=== PATIENT | female | born 1940 | race Caucasian/White ===

== ENCOUNTER → 2016-11-27 | Outpatient (CLI) | payer MEDICARE ==
[2016-08-22 14:34] VITALS: BP 121/60
[~2016-11-27] MED LIST: ALPR0.5T PO; AMIT25TA PO; AMLO10TA4 PO; ASCO500C PO; CALCIUM; CELE200C PO; ESCI10TA PO; GABA-585 PO; GLIP10TA13 PO; HYDR-971 PO; IRBE1TAB PO; LIPITOR80 MG PO; OMEP20TA PO; PROP10DR3 EACHEYE; ROPI0.5T2 PO; SULF1TAB24 PO; TRAM50TA PO; VIT D; VIT1TABL32 PO; mutivitamin
[2016-11-27 09:52] LABS: BASO # 0.1 x10^3/uL (0.0-0.2); BASO % 1 % (0-3); EOS % 1 % (0-3); HEMATOCRIT 41.2 % (36.0-47.0); HEMOGLOBIN 14.1 g/dL (12.0-15.5); LYMPH # 3.4 x10^3/uL (1.0-4.8); LYMPH % 37 % (24-48); MEAN CORPUSCULAR HEMOGLOBIN 32 pg (25-35); MEAN CORPUSCULAR HGB CONC 34 g/dL (31-37); MEAN CORPUSCULAR VOLUME 94 fL (79-100); MONO % 19 % (0-9); NEUT % 41 % (31-73); PLATELET COUNT 261 x10^3/uL (140-400); RED BLOOD COUNT 4.39 x10^6/uL (3.50-5.40)
[2016-11-27 10:10] LABS: ALBUMIN 3.6 g/dL (3.4-5.0); ALBUMIN/GLOBULIN RATIO 0.9 (1.0-1.7); CALCIUM 8.9 mg/dL (8.5-10.1); CREATININE 1.1 mg/dL (0.6-1.0); GFR 48.2; TOTAL BILIRUBIN 0.3 mg/dL (0.2-1.0); TOTAL PROTEIN 7.5 g/dL (6.4-8.2)
[2016-11-27 10:51] LABS: % BASOS 1 % (0-3); % EOS 1 % (0-5)
[2016-11-27 10:52] LABS: PLT ESTIMATE ADEQUATE (ADEQUATE)
== END | disposition home or self-care (01) ==
LOC: SURGPAT 08:36
PROVIDERS: ATTEND Surgery
DX: Z01.812 Encounter for preprocedural laboratory examination (principal)
CPT/HCPCS: 36415; 80053; 85007; 85027

== ENCOUNTER 2016-12-18 10:02 | Observation (INO) | payer MEDICARE ==
[2016-12-18] VITALS (12 sets, daily range): BP systolic 79–129; BP diastolic 45–65
[~2016-12-18] VITALS: Ht 157.5 cm; Wt 74.8 kg
[2016-12-18] MEDS ORDERED: levoFLOXacin 500mg PREMIX 500 MG/100 ML BAG IV ONE (12:00)
[2016-12-18] MEDS ORDERED: BUPIVAC MPF-EPI 0.5%-1:200000 30 ML VIAL. ONE (12:00)
[2016-12-18] MEDS ORDERED: fentaNYL PF VIAL 100 MCG/2 ML VIAL ONE ×2 (12:00)
[2016-12-18] MEDS ORDERED: ROCURONIUM 50 MG/5 ML VIAL. ONE (12:00)
[2016-12-18] MEDS ORDERED: PHENYLEPHRINE in 0.9% NACL PF 1 MG/10 ML DISP.SYRIN. IV ONE (12:00)
[2016-12-18] MEDS ORDERED: ePHEDrine PF IN SALINE 50 MG/5 ML DISP.SYRIN IV ONE (12:00)
[2016-12-18] MEDS ORDERED: MORPHINE SULFATE 2 MG/ML DISP.SYRIN. ONE (12:00)
[2016-12-18] MEDS ORDERED: PROPOFOL 10 MG/ML (20ML) VIAL. IV ONE (12:00)
[2016-12-18] MEDS ORDERED: [UNRECOGNIZED DRUG - OTHER] IV ONE (12:00)
[2016-12-18] MEDS ORDERED: ONDANSETRON PF 4 MG/2 ML VIAL. ONE (12:00)
[2016-12-18] MEDS ORDERED: GLYCOPYRROLATE 1 MG/5 ML VIAL. ONE (12:00)
[2016-12-18] MEDS ORDERED: FAMOTIDINE 20 MG/2 ML VIAL ONE (12:00)
[2016-12-18] MEDS ORDERED: LIDOCAINE 2% 100 MG/5 ML SYRINGE. ONE (12:00)
[2016-12-18] MEDS ORDERED: MINERAL OIL/PETROLATUM,WHITE OPHTH OINT 3.5GM TUBE. ONE (12:00)
[2016-12-18] MEDS ORDERED: SEVOFLURANE 61 TO 120 MINUTES. IH ONE (12:00)
[2016-12-18] MEDS ORDERED: NEOSTIGMINE METHYLSULFATE 5 MG/5 ML SYRINGE. ONE (12:00)
[2016-12-18] MEDS ORDERED: DEXAMETHASONE SOD PHOS 20 MG/5 ML VIAL. ONE (12:00)
[2016-12-18] MEDS: IV DEXTROSE 5%-LACT RINGERS 1,000 ML IV SCH (13:50)
--- NOTE | 2016-12-18 13:50 | PDOC ---
BRIEF OPERATIVE NOTE Date: December 18, 2016 Pre-Op Diagnosis Incarcerated Incisional Hernia Post-Op Diagnosis Same Procedure Performed Robotic assisted L/S Hernia repair with mesh Surgeon Saul Anesthesia Type: General Blood Loss 20ml Specimens Obtained None Findings as above Complications None DALTON MARQUEZ MD December 18, 2016 13:50
[2016-12-18] MEDS ORDERED: 0.9 % SODIUM CHLORIDE 10 ML DISP.SYRIN. IV PRN (14:00)
[2016-12-18] MEDS ORDERED: MORPHINE SULFATE 2 MG/ML DISP.SYRIN. IV PRN (14:00)
[2016-12-18] MEDS ORDERED: oxyCODONE/APAP 5/325 1 TAB TABLET PO PRN ×2 (14:00)
[2016-12-18] MEDS ORDERED: ONDANSETRON PF 4 MG/2 ML VIAL. IV PRN (14:00)
[2016-12-18] MEDS: KETOROLAC 15 MG/ML VIAL. IV SCH (18:50)
[2016-12-18] MEDS ORDERED: traMADol 50 MG TABLET PO PRN ×2 (21:00)
[2016-12-18] MEDS: ALPRAZolam 0.5 MG TABLET PO SCH (21:00)
[2016-12-18 22:48] LABS: BASO % 0 % (0-3); EOS % 0 % (0-3); HEMATOCRIT 27.9 % (36.0-47.0); HEMOGLOBIN 9.2 g/dL (12.0-15.5); LYMPH # 0.9 x10^3/uL (1.0-4.8); LYMPH % 4 % (24-48); MEAN CORPUSCULAR HEMOGLOBIN 31 pg (25-35); MEAN CORPUSCULAR HGB CONC 33 g/dL (31-37); MEAN CORPUSCULAR VOLUME 96 fL (79-100); MONO % 8 % (0-9); NEUT % 88 % (31-73); PLATELET COUNT 276 x10^3/uL (140-400); RED BLOOD COUNT 2.93 x10^6/uL (3.50-5.40); RED CELL DISTRIBUTION WIDTH 14.1 % (11.5-14.5); WHITE BLOOD COUNT 21.6 x10^3/uL (4.0-11.0)
[2016-12-18 23:04] LABS: CALCIUM 7.9 mg/dL (8.5-10.1); CREATININE 1.5 mg/dL (0.6-1.0); GFR 33.7; POTASSIUM 5.5 mmol/L (3.5-5.1)
[2016-12-18 23:11] LABS: PLT ESTIMATE ADEQUATE (ADEQUATE)
[2016-12-18] MEDS ORDERED: IV NORMAL SALINE 500ML BAG 500 ML IV ONE (23:15)
[2016-12-19] VITALS (7 sets, daily range): BP systolic 89–119; BP diastolic 46–54
[2016-12-19] MEDS: KETOROLAC 15 MG/ML VIAL. IV SCH ×3 (00:08→12:54)
[2016-12-19] MEDS: IV DEXTROSE 5%-LACT RINGERS 1,000 ML IV SCH ×2 (03:10→16:30)
[2016-12-19 04:12] LABS: BASO % 0 % (0-3); EOS % 0 % (0-3); HEMATOCRIT 28.2 % (36.0-47.0); HEMOGLOBIN 9.3 g/dL (12.0-15.5); LYMPH # 1.3 x10^3/uL (1.0-4.8); LYMPH % 5 % (24-48); MEAN CORPUSCULAR HEMOGLOBIN 32 pg (25-35); MEAN CORPUSCULAR HGB CONC 33 g/dL (31-37); MEAN CORPUSCULAR VOLUME 97 fL (79-100); MONO % 13 % (0-9); NEUT % 82 % (31-73); PLATELET COUNT 277 x10^3/uL (140-400); RED CELL DISTRIBUTION WIDTH 14.2 % (11.5-14.5); WHITE BLOOD COUNT 23.2 x10^3/uL (4.0-11.0)
[2016-12-19] MEDS: ALPRAZolam 0.5 MG TABLET PO SCH (08:22)
--- NOTE | 2016-12-19 08:31 | PDOC ---
GENERAL General: see dictated consult. Is hypotensive but asymptomatic from same. wbc elevated and felt likely reactive to surgery as clinically no sign of infection. would see how she does as day goes on with dc planning per surgery. Problems: VITAL SIGNS Vital Signs: Vital Signs Date Time Temp Pulse Resp B/P (MAP) Pulse Ox O2 Delivery O2 Flow Rate FiO2 12/19/16 07:00 96.8 96 18 108/52 (70) 92 Nasal Cannula 2.0 96.8 I & O I & O Intake and Output 12/19/16 07:00 Intake Total 1589 ml Balance 1589 ml Intake Oral 900 ml Other 689 ml ALLERGIES Allergies: Allergies Coded Allergies Type Severity Reaction Last Updated Verified Penicillins Allergy Intermediate 12/18/16 Yes MEDS Medications: Current Medications Medications (Trade) Dose Ordered Sig/Dorothea Start Time Stop Time Status Last Admin Dose Admin Alprazolam (Xanax) 0.5 mg BID 12/18/16 21:00 Dextrose/Lactated Ringer's 1,000 ml @ 75 mls/hr [id number] 12/18/16 13:50 12/18/16 13:50 75 MLS/HR Ketorolac Tromethamine (Toradol) 15 mg Q6HRS 12/18/16 18:00 12/19/16 17:59 12/19/16 05:36 15 MG Levofloxacin/ Dextrose 100 ml @ 100 mls/hr 1X PREOP PRN 12/05/16 06:00 12/05/16 18:00 DC Morphine Sulfate 2 mg PRN Q3HRS PRN 12/18/16 14:00 Ondansetron HCl (Zofran) 4 mg PRN Q6HRS PRN 12/18/16 14:00 Oxycodone/ Acetaminophen (Percocet 5/325) 2 tab PRN Q4HRS PRN 12/18/16 14:00 Sodium Chloride 500 ml @ 500 mls/hr 1X ONCE 12/18/16 23:15 12/19/16 00:14 DC 12/18/16 23:24 500 MLS/HR Sodium Chloride (Normal Saline Flush) 3 ml QSHIFT PRN 12/18/16 14:00 Tramadol HCl (Ultram) 100 mg PRN Q6HRS PRN 12/18/16 21:00 LAB Lab: Laboratory Tests Test 12/18/16 22:35 12/19/16 03:00 White Blood Count 21.6 x10^3/uL (4.0-11.0) 23.2 x10^3/uL (4.0-11.0) Red Blood Count 2.93 x10^6/uL (3.50-5.40) 2.90 x10^6/uL (3.50-5.40) Hemoglobin 9.2 g/dL (12.0-15.5) 9.3 g/dL (12.0-15.5) Hematocrit 27.9 % (36.0-47.0) 28.2 % (36.0-47.0) Mean Corpuscular Volume 96 fL (79-100) 97 fL (79-100) Mean Corpuscular Hemoglobin 31 pg (25-35) 32 pg (25-35) Mean Corpuscular Hemoglobin Concent 33 g/dL (31-37) 33 g/dL (31-37) Red Cell Distribution Width 14.1 % (11.5-14.5) 14.2 % (11.5-14.5) Platelet Count 276 x10^3/uL (140-400) 277 x10^3/uL (140-400) Neutrophils (%) (Auto) 88 % (31-73) 82 % (31-73) Lymphocytes (%) (Auto) 4 % (24-48) 5 % (24-48) Monocytes (%) (Auto) 8 % (0-9) 13 % (0-9) Eosinophils (%) (Auto) 0 % (0-3) 0 % (0-3) Basophils (%) (Auto) 0 % (0-3) 0 % (0-3) Neutrophils # (Auto) 19.0 x10^3uL (1.8-7.7) 19.0 x10^3uL (1.8-7.7) Lymphocytes # (Auto) 0.9 x10^3/uL (1.0-4.8) 1.3 x10^3/uL (1.0-4.8) Monocytes # (Auto) 1.7 x10^3/uL (0.0-1.1) 2.9 x10^3/uL (0.0-1.1) Eosinophils # (Auto) 0.0 x10^3/uL (0.0-0.7) 0.0 x10^3/uL (0.0-0.7) Basophils # (Auto) 0.0 x10^3/uL (0.0-0.2) 0.0 x10^3/uL (0.0-0.2) Segmented Neutrophils % 79 % (35-66) Band Neutrophils % 4 % (0-9) Lymphocytes % 7 % (24-48) Monocytes % 10 % (0-10) Platelet Estimate Adequate (ADEQUATE) Sodium Level 137 mmol/L (136-145) Potassium Level 5.5 mmol/L (3.5-5.1) Chloride Level 101 mmol/L (98-107) Carbon Dioxide Level 26 mmol/L (21-32) Anion Gap 10 (6-14) Blood Urea Nitrogen 21 mg/dL (7-20) Creatinine 1.5 mg/dL (0.6-1.0) Estimated GFR (Cockcroft-Gault) 33.7 Glucose Level 320 mg/dL (70-99) Calcium Level 7.9 mg/dL (8.5-10.1) ELIJAH HART MD December 19, 2016 08:30
--- NOTE | 2016-12-19 09:56 | PDOC ---
SURGICAL PROGRESS NOTE Subjective tolerating diet had some lightheadedness, hypotension last night now up to chair, no further symptoms Vital Signs Vital Signs Date Time Temp Pulse Resp B/P (MAP) Pulse Ox O2 Delivery O2 Flow Rate FiO2 12/19/16 08:35 Room Air 12/19/16 07:00 96.8 96 18 108/52 (70) 92 2.0 96.8 I&O Intake and Output 12/19/16 07:00 Intake Total 1589 ml Balance 1589 ml Intake Oral 900 ml Other 689 ml General: Alert, Oriented X3, Cooperative, No acute distress Abdomen: Soft, Other (NTTPbinder on ) Labs Laboratory Tests Test 12/18/16 22:35 12/19/16 03:00 White Blood Count 21.6 x10^3/uL (4.0-11.0) 23.2 x10^3/uL (4.0-11.0) Red Blood Count 2.93 x10^6/uL (3.50-5.40) 2.90 x10^6/uL (3.50-5.40) Hemoglobin 9.2 g/dL (12.0-15.5) 9.3 g/dL (12.0-15.5) Hematocrit 27.9 % (36.0-47.0) 28.2 % (36.0-47.0) Mean Corpuscular Volume 96 fL (79-100) 97 fL (79-100) Mean Corpuscular Hemoglobin 31 pg (25-35) 32 pg (25-35) Mean Corpuscular Hemoglobin Concent 33 g/dL (31-37) 33 g/dL (31-37) Red Cell Distribution Width 14.1 % (11.5-14.5) 14.2 % (11.5-14.5) Platelet Count 276 x10^3/uL (140-400) 277 x10^3/uL (140-400) Neutrophils (%) (Auto) 88 % (31-73) 82 % (31-73) Lymphocytes (%) (Auto) 4 % (24-48) 5 % (24-48) Monocytes (%) (Auto) 8 % (0-9) 13 % (0-9) Eosinophils (%) (Auto) 0 % (0-3) 0 % (0-3) Basophils (%) (Auto) 0 % (0-3) 0 % (0-3) Neutrophils # (Auto) 19.0 x10^3uL (1.8-7.7) 19.0 x10^3uL (1.8-7.7) Lymphocytes # (Auto) 0.9 x10^3/uL (1.0-4.8) 1.3 x10^3/uL (1.0-4.8) Monocytes # (Auto) 1.7 x10^3/uL (0.0-1.1) 2.9 x10^3/uL (0.0-1.1) Eosinophils # (Auto) 0.0 x10^3/uL (0.0-0.7) 0.0 x10^3/uL (0.0-0.7) Basophils # (Auto) 0.0 x10^3/uL (0.0-0.2) 0.0 x10^3/uL (0.0-0.2) Segmented Neutrophils % 79 % (35-66) Band Neutrophils % 4 % (0-9) Lymphocytes % 7 % (24-48) Monocytes % 10 % (0-10) Platelet Estimate Adequate (ADEQUATE) Sodium Level 137 mmol/L (136-145) Potassium Level 5.5 mmol/L (3.5-5.1) Chloride Level 101 mmol/L (98-107) Carbon Dioxide Level 26 mmol/L (21-32) Anion Gap 10 (6-14) Blood Urea Nitrogen 21 mg/dL (7-20) Creatinine 1.5 mg/dL (0.6-1.0) Estimated GFR (Cockcroft-Gault) 33.7 Glucose Level 320 mg/dL (70-99) Calcium Level 7.9 mg/dL (8.5-10.1) Laboratory Tests Test 12/18/16 22:35 12/19/16 03:00 White Blood Count 21.6 x10^3/uL (4.0-11.0) 23.2 x10^3/uL (4.0-11.0) Red Blood Count 2.93 x10^6/uL (3.50-5.40) 2.90 x10^6/uL (3.50-5.40) Hemoglobin 9.2 g/dL (12.0-15.5) 9.3 g/dL (12.0-15.5) Hematocrit 27.9 % (36.0-47.0) 28.2 % (36.0-47.0) Mean Corpuscular Volume 96 fL (79-100) 97 fL (79-100) Mean Corpuscular Hemoglobin 31 pg (25-35) 32 pg (25-35) Mean Corpuscular Hemoglobin Concent 33 g/dL (31-37) 33 g/dL (31-37) Red Cell Distribution Width 14.1 % (11.5-14.5) 14.2 % (11.5-14.5) Platelet Count 276 x10^3/uL (140-400) 277 x10^3/uL (140-400) Neutrophils (%) (Auto) 88 % (31-73) 82 % (31-73) Lymphocytes (%) (Auto) 4 % (24-48) 5 % (24-48) Monocytes (%) (Auto) 8 % (0-9) 13 % (0-9) Eosinophils (%) (Auto) 0 % (0-3) 0 % (0-3) Basophils (%) (Auto) 0 % (0-3) 0 % (0-3) Neutrophils # (Auto) 19.0 x10^3uL (1.8-7.7) 19.0 x10^3uL (1.8-7.7) Lymphocytes # (Auto) 0.9 x10^3/uL (1.0-4.8) 1.3 x10^3/uL (1.0-4.8) Monocytes # (Auto) 1.7 x10^3/uL (0.0-1.1) 2.9 x10^3/uL (0.0-1.1) Eosinophils # (Auto) 0.0 x10^3/uL (0.0-0.7) 0.0 x10^3/uL (0.0-0.7) Basophils # (Auto) 0.0 x10^3/uL (0.0-0.2) 0.0 x10^3/uL (0.0-0.2) Segmented Neutrophils % 79 % (35-66) Band Neutrophils % 4 % (0-9) Lymphocytes % 7 % (24-48) Monocytes % 10 % (0-10) Platelet Estimate Adequate (ADEQUATE) Sodium Level 137 mmol/L (136-145) Potassium Level 5.5 mmol/L (3.5-5.1) Chloride Level 101 mmol/L (98-107) Carbon Dioxide Level 26 mmol/L (21-32) Anion Gap 10 (6-14) Blood Urea Nitrogen 21 mg/dL (7-20) Creatinine 1.5 mg/dL (0.6-1.0) Estimated GFR (Cockcroft-Gault) 33.7 Glucose Level 320 mg/dL (70-99) Calcium Level 7.9 mg/dL (8.5-10.1) Problem List s/p robotic VIH repair will ambulate more, make sure no further syncope or hypotension possible DC after lunch Problems: SHELBY MONGE APRN December 19, 2016 09:56
[2016-12-19] MEDS ORDERED: OXYC1TAB7 PO (09:58)
--- NOTE | 2016-12-19 12:51 | OP ---
DATE OF SURGERY: 12/18/2016 PREOPERATIVE DIAGNOSIS: Incarcerated incisional hernia. POSTOPERATIVE DIAGNOSIS: Incarcerated incisional hernia. PROCEDURE: Robotic-assisted laparoscopic incisional hernia repair with mesh. SURGEON: Giovani Marquez MD. INDICATIONS: The patient is a 76-year-old female who had a midline incision for a gallbladder surgery. She has subsequently developed a moderate size hernia at this incision with a fair amount of incarcerated omentum which is causing her pain. PROCEDURE: Robotic-assisted laparoscopic ventral hernia repair with mesh was explained to the patient in detail. Risks and benefits were also discussed including bleeding, infection, injury to intra-abdominal contents, and possibly sustaining further open operations. Alternatives of this procedure were also discussed with the patient who seemed to understand and gave verbal and written consent to have the procedure performed. DESCRIPTION OF PROCEDURE: The patient was taken to the Operating Room and placed in the supine position. General anesthesia was initiated. Once the patient was asleep and intubated, her abdomen was prepped and draped in usual sterile fashion using ChloraPrep. An area in the left upper quadrant was injected with 0.25% Marcaine with epinephrine, and a 5-mm port was placed under direct visualization with a Visiport. Once this was in the abdomen, pneumoperitoneum was achieved. The abdomen was inspected with a 5-mm camera. It was noted that she had about a 6-cm ovoid hernia defect with a large amount of incarcerated omentum. She also had a couple of small ____ hernias just superior to the larger hernia. At this point, two 8-mm ports were placed under direct visualization, one in the left lower abdomen and one in the left mid abdomen. A 5-mm right upper port was then removed, and an 8-mm port was placed with a da Mily port. At this point, the da Mily robot was brought in and docked at all ports. A 30-degree camera was placed within the central port, and a grasper and an EndoShears scissors were placed. At this point, the surgeon went to the robotic console. Using sharp dissection, the adhesions were taken down. Around the hernia, the incarcerated omentum was reduced. Once this was done, a nonabsorbable V-Loc suture 2-0 was used to close the large hernia defect. The small hernia defects were also closed with a running 2-0 V-Loc suture. At this point, a VersaLite mesh was placed within the abdomen. This covered the larger defect as well as the smaller ones. In total, this was sewn into place with a running V-Loc absorbable suture circumferentially as well as one down the midline of the mesh. Once this was complete, the pneumoperitoneum was reduced. The da Mily robot was undocked. All ports were removed. The skin was reapproximated at all port sites with 4-0 subcuticular Monocryl. Mastisol, Steri-Strips, and Band-Aids were applied as dressings. The patient was awakened, extubated in the Operating Room and taken to Recovery in stable condition. All sponge and instrument counts were listed as correct. Estimated blood loss is 10 mL. GIOVANI MARQUEZ MD DR: CHELA/judy JOB#: [id number] / [id number] ecc Dr. Ron Lucas
--- NOTE | 2016-12-22 03:33 | CONS ---
DATE OF CONSULTATION: 12/19/2016 CHIEF COMPLAINT AND HISTORY OF PRESENT ILLNESS: This is a 76-year-old white female well known to me from followup in the office. She had ventral abdominal hernia repair done on the day prior to my consultation by Dr. Hughes where I was asked to see for medical followup. Briefly, the patient had some problems, was relatively hypotensive overnight although really not much symptomatic other than when she would get up and go to the bathroom. She was just not having any major complaints other than the expected amount of abdominal pain. PAST MEDICAL HISTORY: Remarkable for COPD, diabetes, hypertension, coronary artery disease, anxiety, hyperlipidemia, neuropathy, GERD, restless legs and a spell earlier this year of left-sided arm and leg weakness, which were never fully explained. PAST SURGICAL HISTORY: Remarkable for cholecystectomy, hysterectomy, cardiac stenting. SOCIAL HISTORY: She is a nonsmoker, nondrinker; does not use drugs. FAMILY HISTORY: Noncontributory. MEDICATIONS: Have been addressed on the computer. ALLERGIES: SHE IS ALLERGIC TO PENICILLIN. PHYSICAL EXAMINATION: GENERAL: She is a well-developed, well-nourished white female in bed. VITAL SIGNS: Stable. She is afebrile. Again blood pressures are on the low side in the 90 systolic range. HEAD, EYES, EARS, NOSE AND THROAT: Unremarkable. NECK: Supple without any thyromegaly. CHEST: Clear to auscultation and percussion. HEART: Regular rate and rhythm without S3, S4, or murmur. ABDOMEN: She is wearing abdominal binder. There is expected incisional type tenderness present. Abdomen is soft with good bowel sounds and she is getting ready breakfast. EXTREMITIES: Without cyanosis, clubbing or edema. NEUROLOGIC: She is intact. IMPRESSION: Status post ventral abdominal hernia repair with multiple other problems listed above and relative hypotension since surgery. This is most likely anesthesia related and just taking a while to resolve. PLAN: We will follow along with you. It is up to surgery as far as discharge planning goes, but she claims to be medically stable although blood pressures are definitely low for her normal. ELIJAH HART MD DR: SHAHAB/judy JOB#: [id number] / [id number]
--- NOTE | 2016-12-22 09:33 | PDOC3 ---
Discharge Summary* Date of Admission: December 18, 2016 Date of Discharge: December 19, 2016 Admitting Diagnosis incarcerated incisional hernia Final Diagnosis incarcerated incisional hernia CONSULTS PCP Procedures Robotic-assisted laparoscopic incisional hernia repair with mesh Brief Hospital Course Ms. Mir is a 76 old female who presented with hernia. She underwent the above procedure. Postoperatively tolerating her diet, ambulating, and urinating well. She discharged home Disposition/Orders: D/C to Home CONDITION AT DISCHARGE: Stable Diet: Regular Scheduled Alprazolam (Xanax), 1 TAB PO BID, (Reported) Amitriptyline Hcl (Amitriptyline Hcl), 1 TAB PO QHS, (Reported) Atorvastatin Calcium (Lipitor), 1 TAB PO DAILY, (Reported) Celecoxib (Celebrex), 1 CAP PO DAILY, (Reported) Escitalopram Oxalate (Escitalopram Oxalate), 1 TAB PO DAILY, (Reported) Gabapentin (Gabapentin), 100 MG PO BID, (Reported) Glipizide (Glipizide), 1 TAB PO BID, (Reported) Omeprazole (Omeprazole), 1 TAB PO DAILY, (Reported) Propylene Glycol/Peg 400 (Systane Ultra 0.4-0.3% Eye Drp), 1 DROP EACHEYE QID, ( Reported) Ropinirole Hcl (Ropinirole Hcl), 0.5 MG PO BID, (Reported) Vit A,C & E/Lutein/Minerals (Ocuvite Tablet), 1 EACH PO BID, (Reported) Discontinued Medications Tramadol Hcl (Tramadol Hcl), 1-2 TAB PO PRN Q6HRS, (Reported) FOLLOW UP APPOINTMENT: 2 weeks Time Spent Total time spent with patient [] minutes for coordination of care, counseling, and education. SHELBY MONGE [employer] December 22, 2016 09:33
== END 2016-12-19 17:05 | disposition home or self-care (01) ==
LOC: SURG 10:02 → 4 NORTH 14:00
PROVIDERS: ADMIT Surgery; ATTEND Surgery
DX: K43.0 Incisional hernia with obstruction, without gangrene (principal); J44.9 Chronic obstructive pulmonary disease, unspecified; E11.40 Type 2 diabetes mellitus with diabetic neuropathy, unspecified; I10 Essential (primary) hypertension; I25.10 Atherosclerotic heart disease of native coronary artery without angina pectoris; F41.9 Anxiety disorder, unspecified; E78.5 Hyperlipidemia, unspecified; K21.9 Gastro-esophageal reflux disease without esophagitis; G25.81 Restless legs syndrome
CPT/HCPCS: 36415; 49655; 80048; 82962; 85007; 85027; 96374; 96376; C1781; G0378; G0379; J0131; J1100; J1885; J1956; J2270; J2370; J2405; J2704; J2710; J3010; J3490; J7040; J7120; S0028

== ENCOUNTER 2017-09-02 11:12 | Inpatient (IN) | payer MEDICARE ==
[2017-09-02 12:15] LABS: BASO # 0.1 x10^3/uL (0.0-0.2); BASO % 0 % (0-3); EOS # 0.1 x10^3/uL (0.0-0.7); EOS % 1 % (0-3); HEMATOCRIT 39.2 % (36.0-47.0); HEMOGLOBIN 12.8 g/dL (12.0-15.5); LYMPH # 2.8 x10^3/uL (1.0-4.8); LYMPH % 16 % (24-48); MEAN CORPUSCULAR HEMOGLOBIN 32 pg (25-35); MEAN CORPUSCULAR HGB CONC 33 g/dL (31-37); MEAN CORPUSCULAR VOLUME 99 fL (79-100); MONO # 3.6 x10^3/uL (0.0-1.1); MONO % 20 % (0-9); NEUT # 11.5 x10^3uL (1.8-7.7); NEUT % 64 % (31-73); PLATELET COUNT 282 x10^3/uL (140-400); RED BLOOD COUNT 3.96 x10^6/uL (3.50-5.40); RED CELL DISTRIBUTION WIDTH 14.6 % (11.5-14.5); WHITE BLOOD COUNT 17.9 x10^3/uL (4.0-11.0)
[2017-09-02 12:17] LABS: ADD MAN DIFF? YES
[2017-09-02 12:25] LABS: INR 1.2 (0.8-1.1); PARTIAL THROMBOPLASTIN TIME 35 SEC (24-38); PROTHROMBIN TIME PATIENT 14.1 SEC (11.7-14.0)
[2017-09-02 12:36] LABS: ANION GAP 11 (6-14); BLOOD UREA NITROGEN 23 mg/dL (7-20); CALCIUM 8.7 mg/dL (8.5-10.1); CARBON DIOXIDE 27 mmol/L (21-32); CHLORIDE 103 mmol/L (98-107); CREATININE 1.2 mg/dL (0.6-1.0); GFR 43.4; GLUCOSE 232 mg/dL (70-99); POTASSIUM 3.2 mmol/L (3.5-5.1); SODIUM 141 mmol/L (136-145)
[2017-09-02 12:49] LABS: ALBUMIN 3.4 g/dL (3.4-5.0); ALK PHOS 80 U/L (46-116); ALT (SGPT) 30 U/L (14-59); AST (SGOT) 22 U/L (15-37); DIRECT BILIRUBIN 0.1 mg/dL (0.0-0.2); FECAL OB PT POSITIVE (NEG); NEG OBC FOB NEG; POS OBC FOB POS; TOTAL BILIRUBIN 0.5 mg/dL (0.2-1.0); TOTAL PROTEIN 7.4 g/dL (6.4-8.2)
[2017-09-02 13:00] LABS: % ATYL 2 % (0-0); % BASOS 1 % (0-3); % LYMPHS 9 % (24-48); % MONOS 19 % (0-10); % SEGS 69 % (35-66)
[2017-09-02 13:01] LABS: ANISOCYTOSIS PRESENT; PLT ESTIMATE ADEQUATE (ADEQUATE)
[2017-09-02 13:07] LABS: LIPASE 58 U/L (73-393)
[2017-09-02 14:21] LABS: POC GLUCOSE 114 mg/dL (70-99)
[2017-09-02] MEDS: POTASSIUM CHLORIDE 20 MEQ TABLET.ER. PO (14:52)
[2017-09-02] MEDS: IV NORMAL SALINE 1000ML BAG 1,000 ML IV (14:52)
[2017-09-02] MEDS: CIPROFLOXACIN 400MG PREMIX 200 ML IV (16:42)
[2017-09-02] MEDS: ONDANSETRON PF 4 MG/2 ML VIAL. IV (16:42)
[2017-09-02] MEDS: fentaNYL PF VIAL 100 MCG/2 ML VIAL IV ×2 (17:05→22:12)
[2017-09-02] MEDS: IV DEXTROSE 5 %-0.45 % NACL 1,000 ML IV (17:26)
[2017-09-02 21:09] LABS: POC GLUCOSE 127 mg/dL (70-99)
[2017-09-02] MEDS: GABAPENTIN 100 MG CAPSULE. PO (22:10)
[2017-09-02] MEDS: AMITRIPTYLINE HCL 25 MG TABLET. PO (22:11)
[2017-09-02] MEDS: ALPRAZolam 0.5 MG TABLET PO (22:11)
[2017-09-02] MEDS: rOPINIRole 0.25 MG TABLET. PO (22:11)
[2017-09-02] MEDS: ATORVASTATIN CALCIUM 40 MG TABLET. PO (22:11)
[2017-09-02] MEDS: ACETAMINOPHEN 325 MG TABLET. PO (22:31)
[2017-09-02] MEDS: MULTIVITAMIN I-VITE TABLET. PO (22:31)
[2017-09-02 23:29] LABS: TROPONINI < 0.017 ng/mL (0.000-0.055)
[2017-09-03 05:46] LABS: ADD MAN DIFF? NO
[2017-09-03 06:03] LABS: BASO % 0 % (0-3); EOS # 0.1 x10^3/uL (0.0-0.7); EOS % 1 % (0-3); HEMOGLOBIN 10.2 g/dL (12.0-15.5); LYMPH # 2.8 x10^3/uL (1.0-4.8); LYMPH % 25 % (24-48); MEAN CORPUSCULAR HEMOGLOBIN 33 pg (25-35); MEAN CORPUSCULAR HGB CONC 33 g/dL (31-37); MEAN CORPUSCULAR VOLUME 99 fL (79-100); MONO # 2.5 x10^3/uL (0.0-1.1); MONO % 23 % (0-9); NEUT # 5.6 x10^3uL (1.8-7.7); NEUT % 51 % (31-73); PLATELET COUNT 211 x10^3/uL (140-400); RED BLOOD COUNT 3.13 x10^6/uL (3.50-5.40)
[2017-09-03 06:47] LABS: ANION GAP 10 (6-14); BLOOD UREA NITROGEN 18 mg/dL (7-20); CALCIUM 8.2 mg/dL (8.5-10.1); CARBON DIOXIDE 27 mmol/L (21-32); CHLORIDE 107 mmol/L (98-107); GFR 53.6; GLUCOSE 149 mg/dL (70-99); POTASSIUM 3.3 mmol/L (3.5-5.1); SODIUM 144 mmol/L (136-145)
[2017-09-03 07:16] LABS: TROPONINI < 0.017 ng/mL (0.000-0.055)
[2017-09-03 08:19] LABS: POC GLUCOSE 149 mg/dL (70-99)
[2017-09-03] MEDS ORDERED: PNEUMOCOCCAL VAX SCREEN BY RX. MC (09:00)
[2017-09-03] MEDS: CIPROFLOXACIN 400MG PREMIX 200 ML IV ×2 (09:38→21:10)
[2017-09-03] MEDS: glipiZIDE 5 MG TABLET PO ×2 (09:39→16:30)
[2017-09-03] MEDS: GABAPENTIN 100 MG CAPSULE. PO ×2 (09:39→21:11)
[2017-09-03] MEDS: rOPINIRole 0.25 MG TABLET. PO ×2 (09:39→21:10)
[2017-09-03] MEDS: MULTIVITAMIN I-VITE TABLET. PO ×2 (09:39→21:10)
[2017-09-03] MEDS: ALPRAZolam 0.5 MG TABLET PO ×2 (09:39→21:11)
[2017-09-03] MEDS: PANTOPRAZOLE 40 MG TABLET.DR. PO (09:39)
[2017-09-03] MEDS: CELECOXIB 200 MG CAPSULE. PO (09:39)
[2017-09-03] MEDS: CITALOPRAM 20 MG TABLET. PO (09:40)
[2017-09-03] MEDS: POLYVINYL ALCOHOL 1.4% OPHTH SOLUTION 15ML BOTTLE. OU ×4 (09:40→21:10)
[2017-09-03] MEDS: fentaNYL PF VIAL 100 MCG/2 ML VIAL IV (09:58)
[2017-09-03 11:58] LABS: POC GLUCOSE 156 mg/dL (70-99)
[2017-09-03 12:21] LABS: BILIRUBIN,URINE NEGATIVE (NEG); CLARITY,URINE CLEAR; COLOR,URINE YELLOW; GLUCOSE,URINE NEGATIVE (NEG); NITRITE,URINE NEGATIVE (NEG); PROTEIN,URINE NEGATIVE (NEG-TRACE); UROBILINOGEN,URINE 0.2 mg/dL (0.2 mg/dL)
[2017-09-03 12:45] LABS: BACTERIA,URINE MANY /HPF (0-FEW); SQUAMOUS EPITHELIAL CELL,UR MOD /LPF
[2017-09-03 16:17] LABS: C DIFF BY PCR Negative (Negative)
[2017-09-03 16:22] LABS: POC GLUCOSE 81 mg/dL (70-99)
[2017-09-03 20:28] LABS: POC GLUCOSE 222 mg/dL (70-99)
[2017-09-03] MEDS: LACTOBACILLUS RHAMNOSUS GG 1 CAPSULE. PO (21:10)
[2017-09-03] MEDS: AMITRIPTYLINE HCL 25 MG TABLET. PO (21:11)
[2017-09-03] MEDS: ATORVASTATIN CALCIUM 40 MG TABLET. PO (21:11)
[2017-09-04] MEDS: HYDROcodone/APAP 5/325MG 1 TAB TABLET PO (00:53)
[2017-09-04 07:59] LABS: ADD MAN DIFF? NO
[2017-09-04] MEDS: PANTOPRAZOLE 40 MG TABLET.DR. PO (08:00)
[2017-09-04] MEDS: glipiZIDE 5 MG TABLET PO ×2 (08:02→16:30)
[2017-09-04 08:07] LABS: BASO % 0 % (0-3); EOS # 0.1 x10^3/uL (0.0-0.7); EOS % 1 % (0-3); HEMATOCRIT 32.3 % (36.0-47.0); HEMOGLOBIN 10.7 g/dL (12.0-15.5); LYMPH # 2.5 x10^3/uL (1.0-4.8); LYMPH % 25 % (24-48); MEAN CORPUSCULAR HEMOGLOBIN 33 pg (25-35); MEAN CORPUSCULAR HGB CONC 33 g/dL (31-37); MEAN CORPUSCULAR VOLUME 98 fL (79-100); MONO # 1.9 x10^3/uL (0.0-1.1); MONO % 20 % (0-9); NEUT # 5.3 x10^3uL (1.8-7.7); NEUT % 54 % (31-73); PLATELET COUNT 240 x10^3/uL (140-400); RED CELL DISTRIBUTION WIDTH 15.2 % (11.5-14.5); WHITE BLOOD COUNT 9.9 x10^3/uL (4.0-11.0)
[2017-09-04 08:10] LABS: POC GLUCOSE 108 mg/dL (70-99)
[2017-09-04] MEDS: POLYVINYL ALCOHOL 1.4% OPHTH SOLUTION 15ML BOTTLE. OU ×4 (08:49→21:43)
[2017-09-04] MEDS: LACTOBACILLUS RHAMNOSUS GG 1 CAPSULE. PO ×2 (08:49→21:33)
[2017-09-04] MEDS: CITALOPRAM 20 MG TABLET. PO (08:49)
[2017-09-04] MEDS: GABAPENTIN 100 MG CAPSULE. PO ×2 (08:49→21:34)
[2017-09-04] MEDS: CIPROFLOXACIN 400MG PREMIX 200 ML IV ×2 (08:49→21:43)
[2017-09-04] MEDS: MULTIVITAMIN I-VITE TABLET. PO ×2 (08:49→21:33)
[2017-09-04] MEDS: rOPINIRole 0.25 MG TABLET. PO ×2 (08:49→21:33)
[2017-09-04] MEDS: CELECOXIB 200 MG CAPSULE. PO (08:50)
[2017-09-04] MEDS: ALPRAZolam 0.5 MG TABLET PO ×2 (08:50→21:33)
[2017-09-04 11:39] LABS: POC GLUCOSE 217 mg/dL (70-99)
[2017-09-04 17:44] LABS: POC GLUCOSE 70 mg/dL (70-99)
[2017-09-04 20:41] LABS: POC GLUCOSE 215 mg/dL (70-99)
[2017-09-04] MEDS: ATORVASTATIN CALCIUM 40 MG TABLET. PO (21:32)
[2017-09-04] MEDS: ACETAMINOPHEN 325 MG TABLET. PO (21:32)
[2017-09-04] MEDS: AMITRIPTYLINE HCL 25 MG TABLET. PO (21:33)
[2017-09-05 08:54] LABS: POC GLUCOSE 122 mg/dL (70-99)
[2017-09-05] MEDS: PANTOPRAZOLE 40 MG TABLET.DR. PO (09:15)
[2017-09-05] MEDS: glipiZIDE 5 MG TABLET PO (09:15)
[2017-09-05] MEDS: CITALOPRAM 20 MG TABLET. PO (09:21)
[2017-09-05] MEDS: CELECOXIB 200 MG CAPSULE. PO (09:21)
[2017-09-05] MEDS: rOPINIRole 0.25 MG TABLET. PO (09:21)
[2017-09-05] MEDS: ALPRAZolam 0.5 MG TABLET PO (09:21)
[2017-09-05] MEDS: POLYVINYL ALCOHOL 1.4% OPHTH SOLUTION 15ML BOTTLE. OU (09:21)
[2017-09-05] MEDS: LACTOBACILLUS RHAMNOSUS GG 1 CAPSULE. PO (09:21)
[2017-09-05] MEDS: GABAPENTIN 100 MG CAPSULE. PO (09:21)
[2017-09-05] MEDS: MULTIVITAMIN I-VITE TABLET. PO (09:21)
[2017-09-05] MEDS: CALCIUM CARBONATE 500 MG TAB.CHEW PO (09:24)
[2017-09-05 11:03] LABS: POC GLUCOSE 173 mg/dL (70-99)
[2017-09-05] MEDS: CIPROFLOXACIN HCL 250 MG TABLET. PO (11:32)
== END 2017-09-05 12:00 | disposition home or self-care (01) | DRG 394 ==
LOC: ER 11:12 → ED HOLD 14:45 → 5 NORTH 18:32
DX: K55.9 Vascular disorder of intestine, unspecified (principal); N39.0 Urinary tract infection, site not specified; E11.40 Type 2 diabetes mellitus with diabetic neuropathy, unspecified; D64.9 Anemia, unspecified; J44.9 Chronic obstructive pulmonary disease, unspecified; E78.00 Pure hypercholesterolemia, unspecified; E78.5 Hyperlipidemia, unspecified; F41.9 Anxiety disorder, unspecified; G25.81 Restless legs syndrome; H40.9 Unspecified glaucoma; H54.8 Legal blindness, as defined in USA; I10 Essential (primary) hypertension; I25.10 Atherosclerotic heart disease of native coronary artery without angina pectoris; F32.9 Major depressive disorder, single episode, unspecified; M19.90 Unspecified osteoarthritis, unspecified site; E87.6 Hypokalemia; K21.9 Gastro-esophageal reflux disease without esophagitis; K43.9 Ventral hernia without obstruction or gangrene; K64.4 Residual hemorrhoidal skin tags; M17.10 Unilateral primary osteoarthritis, unspecified knee; Z79.82 Long term (current) use of aspirin; Z82.49 Family history of ischemic heart disease and other diseases of the circulatory system; Z86.73 Personal history of transient ischemic attack (TIA), and cerebral infarction without residual deficits; Z90.49 Acquired absence of other specified parts of digestive tract; Z90.710 Acquired absence of both cervix and uterus; Z95.5 Presence of coronary angioplasty implant and graft; Z88.0 Allergy status to penicillin
CPT/HCPCS: 36415; 74176; 80048; 80076; 81001; 82274; 82962; 83690; 84484; 85007; 85025; 85610; 85730; 87045; 87086; 87324; 96361; 96365; 96366; 96368; 96375; 99285; 99285-25; J0744; J2405; J3010; J3490; J7030

== ENCOUNTER → 2017-10-21 | Day surgery (SDC) | payer MEDICARE ==
[~2017-10-21] MED LIST changes: -ALPR0.5T PO; -AMIT25TA PO; -AMLO10TA4 PO; -ASCO500C PO; -CALCIUM; -CELE200C PO; -ESCI10TA PO; -GABA-585 PO; -GLIP10TA13 PO; -HYDR-971 PO; -IRBE1TAB PO; +LIDOCAINE 1% PF 2 ML VIAL. ID; +LIDOCAINE 2% 100 MG/5 ML SYRINGE.; -LIPITOR80 MG PO; +MORPHINE SULFATE 4 MG/ML DISP.SYRIN. IV; -OMEP20TA PO; +PROCHLORPERAZINE 10 MG/2 ML VIAL. IV; -PROP10DR3 EACHEYE; +PROPOFOL 20 ML IV; -ROPI0.5T2 PO; -SULF1TAB24 PO; -TRAM50TA PO; -VIT D; -VIT1TABL32 PO; +fentaNYL PF VIAL 100 MCG/2 ML VIAL IV; -mutivitamin
[2017-10-21 08:17] LABS: POC GLUCOSE 183 mg/dL (70-99)
[2017-10-21] MEDS: IV RINGERS,LACTATED 1000ML 1,000 ML IV (08:19)
== END | disposition home or self-care (01) ==
LOC: ENDOS 07:32
DX: K64.0 First degree hemorrhoids (principal); K57.30 Diverticulosis of large intestine without perforation or abscess without bleeding; R93.3 Abnormal findings on diagnostic imaging of other parts of digestive tract; Z88.0 Allergy status to penicillin; H40.9 Unspecified glaucoma; I63.9 Cerebral infarction, unspecified; F03.90 Unspecified dementia, unspecified severity, without behavioral disturbance, psychotic disturbance, mood disturbance, and anxiety; I50.9 Heart failure, unspecified; I25.10 Atherosclerotic heart disease of native coronary artery without angina pectoris; E78.00 Pure hypercholesterolemia, unspecified; I10 Essential (primary) hypertension; J44.9 Chronic obstructive pulmonary disease, unspecified; Z90.49 Acquired absence of other specified parts of digestive tract; K21.9 Gastro-esophageal reflux disease without esophagitis; Z90.710 Acquired absence of both cervix and uterus; M19.90 Unspecified osteoarthritis, unspecified site; E11.9 Type 2 diabetes mellitus without complications; F41.9 Anxiety disorder, unspecified; F32.9 Major depressive disorder, single episode, unspecified; F17.210 Nicotine dependence, cigarettes, uncomplicated
CPT/HCPCS: 45378; 82962; J2704

== ENCOUNTER → 2021-05-23 | Outpatient (CLI) | payer MEDICARE ==
[2017-10-21 09:31] VITALS: BP 156/70
[~2021-05-23] MED LIST changes: +ACET325T9 PO; +ALPR0.5T PO; +AMIT25TA PO; +AMLO-186 PO; +AMLO10TA4 PO; +ASCO500C PO; +CALCIUM; +CELE200C PO; +ESCITALOPRAM OX10 MG PO; +GABA-585 PO; +GLIP10TA13 PO; +HYDR-3164 PO; +IRBE1TAB PO; -LIDOCAINE 1% PF 2 ML VIAL. ID; -LIDOCAINE 2% 100 MG/5 ML SYRINGE.; +LIPITOR80 MG PO; -MORPHINE SULFATE 4 MG/ML DISP.SYRIN. IV; +OMEP20TA8 PO; +OMEP40CA7 PO; +OXYC1TAB7 PO; -PROCHLORPERAZINE 10 MG/2 ML VIAL. IV; +PROP10DR3 EACHEYE; -PROPOFOL 20 ML IV; +ROPI0.5T4 PO; +SULF1TAB24 PO; +TRAM50TA PO; +VIT D; +VIT1TABL32 PO; -fentaNYL PF VIAL 100 MCG/2 ML VIAL IV; +mutivitamin
--- NOTE | 2021-05-23 14:07 | KCIC ---
CT HEAD/BRAIN WO History: Reason: Frequent falls, unsteady gait. / Spl. Instructions: / History: Comparison: August 23, 2016 CT. MRI August 18, 2016 Technique: Noncontrast CT imaging was performed of the head. Exposure: One or more of the following individualized dose reduction techniques were utilized for thi s examination: 1. Automated exposure control 2. Adjustment of the mA and/or kV according to patient size 3. Use of iterative reconstruction technique. Findings: No intracranial hemorrhage. No mass effect. Mild prominence of the lateral and third ventricles, tim lar compared to prior likely related to central brain parenchymal volume loss. No findings to suggest obstructive hydrocephalus. Mild brain parenchymal volume loss. Mild foci of decreased attenuation within the hemispheric white m atter, most often due to chronic microvascular ischemia. Chronic left santos/lentiform nucleus infarct. Interval development of chronic appearing left cerebel lar lacunar infarct. Hypodensity within the right lionel (series 2 image 9) may represent chronic infar ct or artifact. Imaged orbits are unremarkable. Imaged paranasal sinuses and mastoid air cells are clear. No acute ca lvarial fracture. TMJ arthropathy. Impression: 1. No acute intracranial hemorrhage. 2. 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 MRI can definitively evaluate as clinically warranted. Electronically signed by: Agustín Arambula DO (05/23/2021 2:04 PM) [facility]
== END ==
LOC: KCIC CT 12:43
PROVIDERS: ATTEND Family Medicine
DX: I67.82 Cerebral ischemia (principal); M26.659 Arthropathy of unspecified temporomandibular joint; W19.XXXA Unspecified fall, initial encounter
CPT/HCPCS: 70450